=== PATIENT | female | born 1975 | race American Indian/Alaskan Native ===

== ENCOUNTER 2017-03-22 08:40 | Outpatient (CLI) | payer BC ==
--- NOTE | 2017-03-22 13:38 | Ultrasound Report ---
ULTRASOUND PELVIC COMPLETE ULTRASOUND TRANSVAGINAL HISTORY: Uterine fibroid disease. COMPARISON: None. TECHNIQUE: Transabdominal and transvaginal ultrasound with color doppler interrogation. FINDINGS: Uterus: The uterus is anteverted. The uterus is mildly enlarged measuring 10.7 x 5.4 x 6.7 cm. Multiple uterine fibroids are identified. A 3.4 x 3.5 cm submucosal fibroid is identified in the posterior wall. A 3.8 x 2.5 cm subserosal fibroid is identified in the posterior fundus. A 3.1 x 3.1 cm intramural fibroid is identified in the right lateral wall. A 2.1 x 1.4 cm intramural fibroid is identified in the anterior wall. Endometrium: The endometrium is displaced anteriorly by submucosal fibroids. The endometrial stripe measures approximately 5 mm. There is trace endometrial fluid. No endometrial mass identified. Right ovary: Obscured. Left ovary: Obscured. No pelvic fluid or mass is identified. Normal color doppler interrogation. IMPRESSION: Uterine fibroid disease as described. The ovaries are obscured.
--- NOTE | 2017-03-23 12:06 | Mammography Report ---
BILATERAL DIGITAL SCREENING MAMMOGRAM with CAD: 03/22/17 08:40:00 CLINICAL: Routine screening. COMPARISON: 02/10/16 FINDINGS: There are bilateral scattered areas of fibroglandular density.No mass, architectural distortion or suspicious calcifications. IMPRESSION: No mammographic evidence of malignancy. BI-RADS CATEGORY: 1 -- Negative RECOMMENDATION: Routine mammographic screening in one year. COMMENT: Patient follow-up letters are generated by our [employer] application.
== END 2017-03-22 08:41 | disposition home or self-care (01) ==
LOC: MAMMO 08:40
PROVIDERS: ATTEND Obstetrics & Gynecology
DX: Z12.31 Encounter for screening mammogram for malignant neoplasm of breast (principal); D25.0 Submucous leiomyoma of uterus; D25.1 Intramural leiomyoma of uterus; D25.2 Subserosal leiomyoma of uterus; I10 Essential (primary) hypertension
CPT/HCPCS: 76830; 76856; G0202; 77067

== ENCOUNTER 2018-06-06 14:24 | Emergency (ER) | payer BC ==
[2018-06-06 14:53] VITALS: BP 131/83
--- NOTE | 2018-06-06 14:54 | Emergency Department Report ---
Blank Doc - Documentation Documentation: 43 y o F with pmh of HTN presents with intermiittent mid to left sided cp radia iting to left shoulder and back started yesterday, no injuries labs [facility] evalutae
[2018-06-06 15:20] LABS: Basophils # (Auto) 0.1 K/mm3 (0.0-0.1); Basophils % (Auto) 1.1 % (0.0-1.8); Eosinophils % (Auto) 0.4 % (0.0-4.3); Hematocrit 41.4 % (30.3-42.9); Hemoglobin 13.5 gm/dl (10.1-14.3); Lymphocytes # (Auto) 2.6 K/mm3 (1.2-5.4); Lymphocytes % (Auto) 42.6 % (13.4-35.0); Mean Corpuscular HGB Conc 33 % (30-34); Mean Corpuscular Volume 86 fl (79-97); Monocytes # (Auto) 0.6 K/mm3 (0.0-0.8); Monocytes % (Auto) 9.3 % (0.0-7.3); Platelet Count 291 K/mm3 (140-440); Red Blood Count 4.79 M/mm3 (3.65-5.03)
[2018-06-06 15:37] LABS: Alanine Aminotransferase 12 units/L (7-56); Albumin 4.1 g/dL (3.9-5); BUN/Creatinine Ratio 20; Blood Urea Nitrogen 10 mg/dL (7-17); Hemolysis Index 43
--- NOTE | 2018-06-06 15:38 | XRay Report ---
CHEST 2 VIEWS INDICATION: Chest pain. COMPARISON: 08/31/2015. FINDINGS: PA and lateral chest radiographs demonstrate normal cardiomediastinal silhouette. Clear lungs. Intact bones. CONCLUSION: No acute disease in the chest, stable. Thank you for the opportunity to participate in this patient's care.
[2018-06-06] MEDS ORDERED: IBUPROFEN PO ONE (16:18)
--- NOTE | 2018-06-06 18:16 | Emergency Department Report ---
ED Chest Pain HPI - General Chief Complaint: Chest Pain Stated Complaint: CHEST PAIN/HEADACHE/BACK PAIN/ Time Seen by Provider: 06/06/18 14:50 Source: patient Mode of arrival: Ambulatory Limitations: No Limitations - History of Present Illness Initial Comments: Patient is a 43-year-old [place] female with past history of hypertension who is presenting with his chest and upper back pain. He states last night she started having some pain in the upper back and bilateral trapezius as well as her chest. She states this is intermittent and occurs at random. Patient states it lasts up to several minutes at a time. She denies any shortness of breath. She states that when she moves certain directions it is slightly worse. Patient denies diaphoresis exertional component nausea vomiting fevers or chills. Severity scale (0 -10): 4 - Related Data Previous Rx's Medication Instructions Recorded Last Taken Type Ibuprofen [Motrin] 600 mg PO Q8H PRN #20 tablet 06/06/18 Unknown Rx methOCARBAMOL [Robaxin TAB] 500 mg PO Q6H PRN #15 tablet 06/06/18 Unknown Rx Allergies Allergy/AdvReac Type Severity Reaction Status Date / Time No Known Allergies Allergy Verified 06/06/18 14:50 Heart Score - HEART Score History: Slightly suspicious EKG: Normal Age: < 45 Risk factors: 1-2 risk factors Troponin: < normal limit HEART Score: 1 ED Review of Systems ROS: Stated complaint: CHEST PAIN/HEADACHE/BACK PAIN/ Other details as noted in HPI Comment: All other systems reviewed and negative ED Past Medical Hx - Past Medical History Hx Hypertension: Yes - Social History Smoking Status: Never Smoker Substance Use Type: Alcohol - Medications Home Medications: Home Medications Medication Instructions Recorded Confirmed Last Taken Type Ibuprofen [Motrin] 600 mg PO Q8H PRN #20 tablet 06/06/18 Unknown Rx methOCARBAMOL [Robaxin TAB] 500 mg PO Q6H PRN #15 tablet 06/06/18 Unknown Rx ED Physical Exam - General Limitations: No Limitations General appearance: alert, in no apparent distress - Head Head exam: Present: atraumatic, normocephalic - Eye Eye exam: Present: normal appearance - ENT ENT exam: Present: mucous membranes moist - Neck Neck exam: Present: normal inspection - Respiratory Respiratory exam: Present: normal lung sounds bilaterally. Absent: respiratory distress, wheezes, rales, rhonchi - Cardiovascular Cardiovascular Exam: Present: regular rate, normal rhythm. Absent: systolic murmur, diastolic murmur, rubs, gallop - GI/Abdominal GI/Abdominal exam: Present: soft, normal bowel sounds. Absent: distended, tenderness, guarding, rebound - Extremities Exam Extremities exam: Present: normal inspection - Back Exam Back exam: Present: normal inspection - Neurological Exam Neurological exam: Present: alert, oriented X3 - Psychiatric Psychiatric exam: Present: normal affect, normal mood - Skin Skin exam: Present: warm, dry, intact, normal color. Absent: rash ED Course Vital Signs 06/06/18 06/06/18 14:50 16:30 Temperature 97.9 F Pulse Rate 77 Respiratory 16 18 Rate Blood Pressure 131/83 O2 Sat by Pulse 100 Oximetry ED Medical Decision Making - Lab Data Result diagrams: 06/06/18 15:05 06/06/18 15:05 Lab Results 06/06/18 06/06/18 06/06/18 Range/Units 15:05 15:05 15:05 WBC 6.2 (4.5-11.0) K/mm3 RBC 4.79 (3.65-5.03) M/mm3 Hgb 13.5 (10.1-14.3) gm/dl Hct 41.4 (30.3-42.9) % MCV 86 (79-97) fl MCH 28 (28-32) pg MCHC 33 (30-34) % RDW 15.0 (13.2-15.2) % Plt Count 291 (140-440) K/mm3 Lymph % (Auto) 42.6 H (13.4-35.0) % [place] % (Auto) 9.3 H (0.0-7.3) % Eos % (Auto) 0.4 (0.0-4.3) % Baso % (Auto) 1.1 (0.0-1.8) % Lymph # 2.6 (1.2-5.4) K/mm3 [place] # 0.6 (0.0-0.8) K/mm3 Eos # 0.0 (0.0-0.4) K/mm3 Baso # 0.1 (0.0-0.1) K/mm3 Seg Neutrophils % 46.6 (40.0-70.0) % Seg Neutrophils # 2.9 (1.8-7.7) K/mm3 Sodium 137 (137-145) mmol/L Potassium 4.1 (3.6-5.0) mmol/L Chloride 98.1 (98-107) mmol/L Carbon Dioxide 26 (22-30) mmol/L Anion Gap 17 mmol/L BUN 10 (7-17) mg/dL Creatinine 0.5 L (0.7-1.2) mg/dL Estimated GFR > 60 ml/min BUN/Creatinine Ratio 20 % Glucose 80 (65-100) mg/dL Calcium 9.0 (8.4-10.2) mg/dL Total Bilirubin 0.20 (0.1-1.2) mg/dL AST 14 (5-40) units/L ALT 12 (7-56) units/L Alkaline Phosphatase 55 (35-129) units/L Troponin T < 0.010 (0.00-0.029) ng/mL Total Protein 7.4 (6.3-8.2) g/dL Albumin 4.1 (3.9-5) g/dL Albumin/Globulin Ratio 1.2 % /15/ Range/Units 17:07 WBC (4.5-11.0) K/mm3 RBC (3.65-5.03) M/mm3 Hgb (10.1-14.3) gm/dl Hct (30.3-42.9) % MCV (79-97) fl MCH (28-32) pg MCHC (30-34) % RDW (13.2-15.2) % Plt Count (140-440) K/mm3 Lymph % (Auto) (13.4-35.0) % [place] % (Auto) (0.0-7.3) % Eos % (Auto) (0.0-4.3) % Baso % (Auto) (0.0-1.8) % Lymph # (1.2-5.4) K/mm3 [place] # (0.0-0.8) K/mm3 Eos # (0.0-0.4) K/mm3 Baso # (0.0-0.1) K/mm3 Seg Neutrophils % (40.0-70.0) % Seg Neutrophils # (1.8-7.7) K/mm3 Sodium (137-145) mmol/L Potassium (3.6-5.0) mmol/L Chloride (98-107) mmol/L Carbon Dioxide (22-30) mmol/L Anion Gap mmol/L BUN (7-17) mg/dL Creatinine (0.7-1.2) mg/dL Estimated GFR ml/min BUN/Creatinine Ratio % Glucose (65-100) mg/dL Calcium (8.4-10.2) mg/dL Total Bilirubin (0.1-1.2) mg/dL AST (5-40) units/L ALT (7-56) units/L Alkaline Phosphatase (35-129) units/L Troponin T < 0.010 (0.00-0.029) ng/mL Total Protein (6.3-8.2) g/dL Albumin (3.9-5) g/dL Albumin/Globulin Ratio % - EKG Data -: EKG Interpreted by Pr EKG shows normal: sinus rhythm, axis, intervals, QRS complexes, ST-T waves Rate: normal - EKG Data Interpretation: normal EKG - Radiology Data Radiology results: report reviewed (CXR WNL) - Medical Decision Making Patient has 2 negative troponins and a very low heart floor. Patient is being ruled out for acute DC at this time. Patient has a normal chest x-ray. Patient likely muscle skeletal pain the patient be discharged home. Critical care attestation.: If time is entered above; I have spent that time in minutes in the direct care of this critically ill patient, excluding procedure time. ED Disposition Clinical Impression: Musculoskeletal chest pain Disposition: DC-01 TO HOME OR SELFCARE Is pt being admited?: No Does the pt Need Aspirin: No Condition: Stable Instructions: Chest Pain (ED) Referrals: XANDER GIPSON MD [Staff Physician] - 3-5 Days Time of Disposition: 18:12
== END 2018-06-06 18:26 | disposition home or self-care (01) ==
LOC: ED 14:24
DX: R07.89 Other chest pain (principal); M79.10 Myalgia, unspecified site; I10 Essential (primary) hypertension
CPT/HCPCS: 36415; 71046; 80053; 84484; 85025; 93005; 93010; 99284

== ENCOUNTER 2018-12-26 08:28 | Outpatient (CLI) | payer BC ==
[2018-12-26 11:53] LABS: Hematocrit 39.9 % (30.3-42.9); Hemoglobin 13.1 gm/dl (10.1-14.3); Mean Corpuscular HGB Conc 33 % (30-34); Mean Corpuscular Volume 87 fl (79-97); Platelet Count 270 K/mm3 (140-440); Red Blood Count 4.58 M/mm3 (3.65-5.03); Red Cell Distribution Width 14.1 % (13.2-15.2)
[2018-12-26 11:57] LABS: Bilirubin,Urine NEG (Negative); Blood,Urine NEG (Negative); Color,Urine Straw (Yellow); Mucus,Urine FEW /HPF; Protein,Urine <15 mg/dL mg/dL (Negative); RBC,Urine < 1.0 /HPF (0.0-6.0); Urobilinogen,Urine < 2.0 mg/dL (<2.0); WBC,Urine < 1.0 /HPF (0.0-6.0)
[2018-12-26 12:04] LABS: Alanine Aminotransferase 9 units/L (7-56); Albumin 4.3 g/dL (3.9-5); BUN/Creatinine Ratio 23; Blood Urea Nitrogen 14 mg/dL (7-17); Calcium 8.9 mg/dL (8.4-10.2); HDL Cholesterol 71 mg/dL (40-59); Hemolysis Index 3; LDL Cholesterol,Direct 62 mg/dL (50-130)
== END 2018-12-26 08:29 | disposition home or self-care (01) ==
LOC: LAB 08:28
PROVIDERS: ATTEND Nurse Practitioner Gerontology
DX: Z00.01 Encounter for general adult medical examination with abnormal findings (principal); I10 Essential (primary) hypertension
CPT/HCPCS: 36415; 80053; 80061; 81001; 84443; 85027

== ENCOUNTER 2019-04-21 08:44 | Outpatient (CLI) | payer BC ==
--- NOTE | 2019-04-21 10:08 | Mammography Report ---
BILATERAL DIGITAL SCREENING MAMMOGRAM WITH CAD INDICATION: Routine screening mammography. TECHNIQUE: Digital bilateral 2D mammography was obtained in the craniocaudal and mediolateral obliq ue projections. This examination was interpreted with the benefit of Computer-Aided Detection analysi s. COMPARISON: 04/18/2018, 03/22/2017, 02/10/2016. FINDINGS: Breast Density: There are scattered areas of fibroglandular density. No suspicious mass, microcalcifications, or architectural distortion. IMPRESSION: No evidence of breast malignancy. Recommend routine screening mammogram in one year. BI-RADS Category 1: Negative. No mammographic evidence of malignancy. Recommend routine screening m ammography in one year. A "normal" or negative report should not discourage follow up or biopsy of a clinically significant f inding. A written summary of these findings will be mailed to the patient. The patient will be entered into a mammography reporting system which will generate a reminder letter for the patient's next appointmen t at the appropriate interval. The [employer] recommends yearly mammograms starting at age 40 and continuing as l lakshmi as a woman is in good health. Breast MRI is recommended for women with an approximate 20-25% or greater lifetime risk of breast cancer, including women with a strong family history of breast or ova jaci cancer or who have been treated for Hodgkin's disease. Signer Name: Yonny Robledo MD Signed: 04/21/2019 10:04 AM Workstation Name: [id number]
--- NOTE | 2019-04-21 11:18 | Ultrasound Report ---
Pelvic Ultrasound HISTORY: UTERINE BLEEDING. TECHNIQUE: Grayscale and color Doppler imaging performed. COMPARISON: Pelvic ultrasound from 03/22/2017 FINDINGS: Transabdominal and endovaginal technique performed. Uterus measures 13.3 x 7.0 x 8.4 cm with endometrial echo complex measuring 7 mm. There are at least 6 mixed echogenicity masses within the uterus the largest of which measures 5.3 cm within the fundus/ body. Ovaries are both normal in size and appearance. No free fluid. IMPRESSION: Uterine fibroid disease Signer Name: Ciaran Jang MD Signed: 04/21/2019 11:13 AM Workstation Name: [id number]
== END 2019-04-21 08:45 | disposition home or self-care (01) ==
LOC: MAMMO 08:44
PROVIDERS: ATTEND Obstetrics & Gynecology
DX: Z12.31 Encounter for screening mammogram for malignant neoplasm of breast (principal); D25.9 Leiomyoma of uterus, unspecified
CPT/HCPCS: 76830; 76856; 77067

== ENCOUNTER 2020-01-11 13:12 | Outpatient (CLI) | payer BC ==
[2020-01-11 13:48] LABS: Hematocrit 37.9 % (30.3-42.9); Hemoglobin 12.6 gm/dl (10.1-14.3); Mean Corpuscular HGB Conc 33 % (30-34); Mean Corpuscular Volume 86 fl (79-97); Platelet Count 278 K/mm3 (140-440); Red Blood Count 4.42 M/mm3 (3.65-5.03); Red Cell Distribution Width 13.8 % (13.2-15.2)
[2020-01-11 14:26] LABS: Alanine Aminotransferase 15 units/L (7-56); Albumin 4.2 g/dL (3.9-5); Blood Urea Nitrogen 10 mg/dL (7-17); Calcium 8.7 mg/dL (8.4-10.2); Hemolysis Index 0
[2020-01-11 14:27] LABS: BUN/Creatinine Ratio 17
[2020-01-11 15:10] LABS: Free T4 (Free Thyroxine) 0.84 ng/dL (0.76-1.46)
[2020-01-12 16:18] LABS: Chol/HDL Ratio 2.07 %; HDL Cholesterol 68 mg/dL (40-59); LDL Cholesterol,Direct 58 mg/dL (50-130)
== END 2020-01-11 13:13 | disposition home or self-care (01) ==
LOC: LAB 13:12
PROVIDERS: ATTEND Family Medicine
DX: Z13.220 Encounter for screening for lipoid disorders (principal); I10 Essential (primary) hypertension; R60.0 Localized edema
CPT/HCPCS: 36415; 80053; 80061; 84439; 84443; 85027

== ENCOUNTER 2020-05-06 13:15 | Outpatient (CLI) | payer BC ==
--- NOTE | 2020-05-06 14:17 | Mammography Report ---
DIGITAL SCREENING MAMMOGRAM WITH CAD, 05/06/2020 INDICATION: Routine screening mammography. TECHNIQUE: Digital bilateral 2D mammography was obtained in the craniocaudal and mediolateral obliq ue projections. This examination was interpreted with the benefit of Computer-Aided Detection analysi s. COMPARISON: 04/21/2019 FINDINGS: Breast Density: There are scattered areas of fibroglandular density. There is no evidence of dominant mass, suspicious calcifications or architectural distortion in eithe r breast. IMPRESSION: Follow up recommendation: Routine yearly BI-RADS Category 1: Negative. A "normal" or negative report should not discourage follow up or biopsy of a clinically significant f inding. A written summary of these findings will be mailed to the patient. The patient will be entered into a mammography reporting system which will generate a reminder letter for the patient's next appointmen t at the appropriate interval. The [employer] recommends yearly mammograms starting at age 40 and continuing as l lakshmi as a woman is in good health. Breast MRI is recommended for women with an approximate 20-25% or greater lifetime risk of breast cancer, including women with a strong family history of breast or ova jaci cancer or who have been treated for Hodgkin's disease. Signer Name: Pierre Lozano MD Signed: 05/06/2020 2:12 PM Workstation Name: [id number]
--- NOTE | 2020-05-06 15:59 | Ultrasound Report ---
Transabdominal and transvaginal pelvic ultrasound INDICATION: Fibroids COMPARISON: 04/21/2019 FINDINGS: Uterus is enlarged measuring 10.9 x 7.1 x 8.7 cm. There are multiple fibroids identified. L argest fibroid anteriorly measures 5.1 x 4.6 x 4.6 cm. Anterior superiorly 3.4 x 2.7 x 3.2 cm. Slight ly exophytic fibroid in the fundus measures 2.6 x 2.2 x 2.2 cm. Endometrial thickness measures 4 5 mm . Ovaries are not visualized. IMPRESSION: Multiple uterine fibroids as described above. Signer Name: Taj Carter MD Signed: 05/06/2020 3:54 PM Workstation Name: [id number]
== END 2020-05-06 13:16 | disposition home or self-care (01) ==
LOC: MAMMO 13:15
PROVIDERS: ATTEND Obstetrics & Gynecology
DX: Z12.31 Encounter for screening mammogram for malignant neoplasm of breast (principal); D25.9 Leiomyoma of uterus, unspecified
CPT/HCPCS: 76830; 76856; 77067

== ENCOUNTER 2021-01-17 12:57 | Outpatient (CLI) | payer BC ==
[2021-01-17 14:06] LABS: Hematocrit 38.8 % (30.3-42.9); Hemoglobin 12.6 gm/dl (10.1-14.3); Mean Corpuscular HGB Conc 33 % (30-34); Mean Corpuscular Volume 84 fl (79-97); Platelet Count 303 K/mm3 (140-440); Red Cell Distribution Width 14.5 % (13.2-15.2)
[2021-01-17 17:23] LABS: Creatinine,Urine 61.6 mg/dL (0.1-20.0)
== END 2021-01-17 12:58 | disposition home or self-care (01) ==
LOC: LAB 12:57
PROVIDERS: ATTEND Family Medicine
DX: Z00.00 Encounter for general adult medical examination without abnormal findings (principal); I10 Essential (primary) hypertension
CPT/HCPCS: 36415; 80061; 82043; 84443; 85027

== ENCOUNTER 2021-04-04 12:13 | Outpatient (CLI) | payer BC | END 2021-04-04 12:14 | disposition home or self-care (01) | LOC: LAB 12:13 | PROVIDERS: ATTEND Obstetrics & Gynecology | DX: Z01.419 Encounter for gynecological examination (general) (routine) without abnormal findings (principal) | CPT/HCPCS: 36415 ==

== ENCOUNTER 2021-05-09 08:28 | Outpatient (CLI) | payer BC ==
--- NOTE | 2021-05-09 11:54 | Ultrasound Report ---
ULTRASOUND PELVIS INDICATION / CLINICAL INFORMATION: Z12.39. History fibroids TECHNIQUE: Transabdominal and Transvaginal. Duplex Color Doppler used: Yes. COMPARISON: Pelvic ultrasound 05/06/2020. FINDINGS: UTERUS: - Appearance: Enlarged, heterogeneous. - Size (cm): 10.8 x 9.8 x 8.4 cm. - Endometrial Complex (if present): Trace fluid is noted within the endometrium. Thickness in cm (if measured) = 0.8 cm. - Mass or cyst: Multiple uterine fibroids. The largest is again visualized within the uterine body me asuring 5.2 cm, unchanged. - Additional findings: None. RIGHT ADNEXA: The right ovary measures 2.9 x 1.8 x 2.0 cm. No significant ovarian cyst or mass. Ivory l color Doppler blood flow. LEFT ADNEXA: The left ovary is not visualized. No significant adnexal abnormality. URINARY BLADDER: No significant abnormality. FREE FLUID: None. ADDITIONAL FINDINGS: None. IMPRESSION: 1. Enlarged fibroid uterus, as above. 2. Nonvisualization of the left ovary. No significant cystic or solid mass in either adnexa. Scribed by: Aurora De Los Santos RDMS, TYRONE, LUIS Scribed: 05/09/2021 10:19 AM I have reviewed the images, agree with this report, and edited this report as needed. Signer Name: Nathan Duran MD Signed: 05/09/2021 11:49 AM Workstation Name: [id number]
== END 2021-05-09 08:29 | disposition home or self-care (01) ==
LOC: MAMMO 08:28
PROVIDERS: ATTEND Obstetrics & Gynecology
DX: D25.9 Leiomyoma of uterus, unspecified (principal)
CPT/HCPCS: 76830; 76856

== ENCOUNTER 2021-08-04 09:07 | Outpatient (CLI) | payer BC ==
[2021-08-04 09:59] LABS: Alanine Aminotransferase 8 units/L (7-56); Albumin 3.7 g/dL (3.9-5); Blood Urea Nitrogen 15 mg/dL (7-17); Calcium 8.6 mg/dL (8.4-10.2); Hemolysis Index 65
[2021-08-04 10:00] LABS: BUN/Creatinine Ratio 21
[2021-08-04 10:11] LABS: Creatinine,Urine 68.8 mg/dL (0.1-20.0); Microalbumin/Creatinine Ratio 17.4 ug/mg
== END 2021-08-04 09:08 | disposition home or self-care (01) ==
LOC: LAB 09:07
PROVIDERS: ATTEND Family Medicine
DX: I10 Essential (primary) hypertension (principal)
CPT/HCPCS: 36415; 80053; 82043